=== PATIENT | female | born 1995 ===

== ENCOUNTER → 2024-02-13 | Outpatient (CLI) | payer OTHER | END | disposition home or self-care (01) | LOC: SONOGRAMA 11:52 | DX: N89.8 Other specified noninflammatory disorders of vagina (principal) ==

== ENCOUNTER 2024-05-08 08:37 | Outpatient (CLI) | payer OTHER | END 2024-05-08 08:55 | disposition home or self-care (01) | LOC: RAD 08:37 | DX: J40 Bronchitis, not specified as acute or chronic (principal) ==